=== PATIENT | female | born 1970 | race Asian ===

== ENCOUNTER 2020-07-02 18:27 | Emergency (ER) | payer MEDICAID ==
[~2020-07-02] VITALS: Ht 149.9 cm; Wt 43.1 kg
[2020-07-02 19:05] VITALS: BP 145/87
--- NOTE | 2020-07-02 19:05 | NUR ---
ED Nurse Note: Pt BIBA for abdominal discomfort and pressure. Denies pain. Pt states she feels like a "snake is in stomach." Pt is alert and orientedx4, ambulatory. She has blood drawn. Set up on monitor. Pt has anxiety.
--- NOTE | 2020-07-02 19:10 | NUR ---
HAND-OFF: Report received from GAMA Kinsey. Pt in stable condition, resting in bed, aao x 4.
[2020-07-02] MEDS ORDERED: Omnipaque-300 100ml vial INJ PRN (19:15)
[2020-07-02 19:21] LABS: BASOPHILS % (AUTO) 1.1 % (0.0-2.0); EOSINOPHILS % (AUTO) 1.5 % (0.0-3.0); HEMATOCRIT 51.8 % (37.0-47.0); HEMOGLOBIN 16.4 G/DL (12.0-16.0); LYMPHOCYTES % (AUTO) 32.9 % (20.0-45.0); MEAN CORPUSCULAR VOLUME 92 FL (80-99); MONOCYTES % (AUTO) 6.2 % (1.0-10.0); NEUTROPHILS % (AUTO) 58.3 % (45.0-75.0); PLATELET COUNT 362 K/UL (150-450); RED BLOOD COUNT 5.65 M/UL (4.20-5.40); WHITE BLOOD COUNT 12.1 K/UL (4.8-10.8)
[2020-07-02 19:21] LABS: APPEARANCE,URINE CLEAR; BILIRUBIN, URINE NEGATIVE (NEGATIVE); COLOR,URINE PALE YELLOW; GLUCOSE, URINE (UA) NEGATIVE (NEGATIVE); KETONES,URINE NEGATIVE (NEGATIVE); LEUKOCYTE ESTERASE ,URINE NEGATIVE (NEGATIVE); NITRITE,URINE NEGATIVE (NEGATIVE); PH,URINE 7 (4.5-8.0); PROTEIN,URINE NEGATIVE (NEGATIVE); UROBILINOGEN,URINE NORMAL MG/DL (0.0-1.0)
--- NOTE | 2020-07-02 19:21 | Emergency Room Report ---
History of Present Illness General Chief Complaint: Abdominal Pain Source: Patient Present Illness HPI Disclaimer: Please note that this report is being documented using DRAGON technology. This can lead to erroneous entry secondary to incorrect interpretation by the dictating instrument. HPI: 49-year-old female no reported past medical history presents from home due to abdominal discomfort. She reports intermittent abdominal discomfort for the past 5 days. Some nausea no vomiting but does report constipation. No urinary complaints. She states it feels as though "a snake is moving around in my abdomen". He denies any fevers. She denies any surgical history. She denies any pain at this time. Allergies: Coded Allergies: No Known Allergies (Unverified , 07/02/20) COVID-19 Screening Contact w/high risk pt: No Experienced COVID-19 symptoms?: No COVID-19 Testing performed ENGINEERING GROUP MANAGER: No Patient History Last Menstrual Period: none Now: No Reviewed Nursing Documentation: PMH: Agreed; PSxH: Agreed Nursing Documentation-PMH Past Medical History: No Stated History Review of Systems All Other Systems: negative except mentioned in HPI Physical Exam Vital Signs Date Time Temp Pulse Resp B/P (MAP) Pulse Ox O2 Delivery O2 Flow Rate FiO2 07/02/20 18:34 97.5 84 20 150/80 (103) 96 Room Air Sp02 EP Interpretation: reviewed, normal General Appearance: well appearing, no apparent distress Head: normocephalic, atraumatic Eyes: bilateral eye PERRL, bilateral eye EOMI ENT: hearing grossly normal, moist mucus membranes Neck: full range of motion, supple Respiratory: lungs clear, normal breath sounds, no rhonchi, no respiratory distress, no retraction, no wheezing Cardiovascular #1: normal peripheral pulses, regular rate, rhythm, no murmur Gastrointestinal: non tender, soft, non-distended, no guarding Neurologic: alert, oriented x3, no focal defects Skin: normal color, warm/dry Medical Decision Making Diagnostic Impression: Primary Impression: Abdominal pain ER Course MDM: Differential diagnosis included but not limited to gastritis, colitis, gastroenteritis, UTI Clinical course-IV inserted. Laboratory studies are sent CT scan with IV contrast ordered. CT scan did not demonstrate any acute inflammatory pathology. Laboratory studies showed white blood cell count of 12 without other acute findings, LFTs normal. On my reexamination patient remained pain-free abdomen nontender. At this time will discharge home on antacids, antiemetics, and laxative. I have low suspicion for surgical abdominal disease. Patient will follow-up with her PMD. I did give her strict return precautions. Laboratory Tests Test 07/02/20 18:45 07/02/20 18:55 Urine Color Pale yellow Urine Appearance Clear Urine pH 7 (4.5-8.0) Urine Specific [place] 1.010 (1.005-1.035) Urine Protein Negative (NEGATIVE) Urine Glucose (UA) Negative (NEGATIVE) Urine Ketones Negative (NEGATIVE) Urine Blood 2+ (NEGATIVE) H Urine Nitrite Negative (NEGATIVE) Urine Bilirubin Negative (NEGATIVE) Urine Urobilinogen Normal MG/DL (0.0-1.0) Urine Leukocyte Esterase Negative (NEGATIVE) Urine RBC 0-2 /HPF (0 - 2) Urine WBC 0-2 /HPF (0 - 2) Urine Squamous Epithelial Cells Occasional /LPF Urine Bacteria Occasional /HPF (NONE) White Blood Count 12.1 K/UL (4.8-10.8) H Red Blood Count 5.65 M/UL (4.20-5.40) H Hemoglobin 16.4 G/DL (12.0-16.0) H Hematocrit 51.8 % (37.0-47.0) H Mean Corpuscular Volume 92 FL (80-99) Mean Corpuscular Hemoglobin 29.1 PG (27.0-31.0) Mean Corpuscular Hemoglobin Concent 31.7 G/DL (32.0-36.0) L Red Cell Distribution Width 13.0 % (11.6-14.8) Platelet Count 362 K/UL (150-450) Mean Platelet Volume 6.5 FL (6.5-10.1) Neutrophils (%) (Auto) 58.3 % (45.0-75.0) Lymphocytes (%) (Auto) 32.9 % (20.0-45.0) Monocytes (%) (Auto) 6.2 % (1.0-10.0) Eosinophils (%) (Auto) 1.5 % (0.0-3.0) Basophils (%) (Auto) 1.1 % (0.0-2.0) Sodium Level 141 MMOL/L (136-145) Potassium Level 3.5 MMOL/L (3.5-5.1) Chloride Level 103 MMOL/L (98-107) Carbon Dioxide Level 30 MMOL/L (21-32) Anion Gap 8 mmol/L (5-15) Blood Urea Nitrogen 11 mg/dL (7-18) Creatinine 0.8 MG/DL (0.55-1.30) Estimated Glomerular Filtration Rate > 60 mL/min (>60) Glucose Level 108 MG/DL (74-106) H Calcium Level 9.0 MG/DL (8.5-10.1) Total Bilirubin 0.3 MG/DL (0.2-1.0) Aspartate Amino Transferase (AST) 18 U/L (15-37) Alanine Aminotransferase (ALT) 22 U/L (12-78) Alkaline Phosphatase 93 U/L (46-116) Total Protein 8.3 G/DL (6.4-8.2) H Albumin 4.0 G/DL (3.4-5.0) Globulin 4.3 g/dL Albumin/Globulin Ratio 0.9 (1.0-2.7) L Lipase 166 U/L (73-393) CT/MRI/US Diagnostic Results CT/MRI/US Diagnostic Results : Imaging Test Ordered: CT scan abdomen and pelvis Impression IMPRESSION: 1. Fatty infiltration of the liver. 2. Gallbladder is unremarkable. 3. No renal calculus or hydronephrosis is detected. 4. Appendix is unremarkable. 5. No evidence of bowel obstruction. 6. Umbilical hernia containing mesenteric fat only. Last Vital Signs Date Time Temp Pulse Resp B/P (MAP) Pulse Ox O2 Delivery O2 Flow Rate FiO2 07/02/20 18:34 97.5 84 20 150/80 (103) 96 Room Air Status: improved Disposition: HOME, SELF-CARE Condition: Stable Scripts Polyethylene Glycol 3350* (MIRALAX*) 17 Gm Powd.pack 17 GM ORAL DAILY, #30 PACKET Prov: Fredy Murry M.D. 07/02/20 Ondansetron (Zofran) 4 Mg Tablet 4 MG ORAL Q8H PRN for Nausea & Vomiting, #10 TAB 0 Refills Prov: Fredy Murry M.D. 07/02/20 Famotidine* (Pepcid 20mg tablet*) 20 Mg Tablet 20 MG ORAL TWICE A DAY for Gerd, #30 TAB 0 Refills Prov: Fredy Murry M.D. 07/02/20 Referrals: NOT CHOSEN [facility]/,REFERRING (PCP) Fredy Murry M.D. Jul 02, 2020 19:21
[2020-07-02 19:31] LABS: ANION GAP 8 mmol/L (5-15); BLOOD UREA NITROGEN 11 mg/dL (7-18); CARBON DIOXIDE 30 MMOL/L (21-32); CHLORIDE 103 MMOL/L (98-107); CREATININE 0.8 MG/DL (0.55-1.30); POTASSIUM 3.5 MMOL/L (3.5-5.1); SODIUM 141 MMOL/L (136-145)
[2020-07-02 19:35] LABS: ALANINE AMINOTRANSFERASE 22 U/L (12-78); ALBUMIN/GLOBULIN RATIO 0.9 (1.0-2.7); ALKALINE PHOSPHATASE 93 U/L (46-116); ASPARTATE AMINO TRANSFERASE 18 U/L (15-37); BILIRUBIN,TOTAL 0.3 MG/DL (0.2-1.0)
--- NOTE | 2020-07-02 19:45 | NUR ---
ED Nurse Note: pt taken to ct in stable condition
--- NOTE | 2020-07-02 20:00 | NUR ---
ED Nurse Note: pt returned frmo ct in stable conditions. awaiting results from ct
--- NOTE | 2020-07-02 20:20 | Diagnostic Imaging Report ---
EXAM: CT Abdomen and Pelvis With Intravenous Contrast CLINICAL HISTORY: AB PAIN. Kidney stone, right side pain TECHNIQUE: Axial computed tomography images of the abdomen and pelvis with intravenous contrast. CTDI is 3.3 mGy and DLP is 148.1 mGy-cm. One or more of the following dose reduction techniques were used: automated exposure control, adjustment of the mA and/or kV according to patient size, use of iterative reconstruction technique. COMPARISON: No previous studies. FINDINGS: Lung bases: Minimal subsegmental atelectasis at the lung bases. Minimal scarring at the lateral left lung base. Mediastinum: Small hiatal hernia and probable distal esophagitis. ABDOMEN: Liver: The very top of the dome of the right liver is excluded from view. Diffuse fatty infiltration of the liver. Gallbladder and bile ducts: See below. Pancreas: The head, body, tail of the pancreas and the gallbladder are unremarkable. No ductal dilation. Spleen: The spleen enhance uniformly. Adrenals: 1.5 cm probable left adrenal adenoma. No follow-up is advised to The right adrenal gland is unremarkable. Kidneys and ureters: Both kidneys are shown to excrete contrast bilaterally without renal calculus or hydronephrosis. Stomach and bowel: Moderate quantity of stool throughout the colon. No evidence of bowel obstruction. No mucosal thickening. PELVIS: Appendix: The appendix is seen on coronal image 22 and is unremarkable. Bladder: The bladder is underdistended. Reproductive: The uterus is unremarkable. ABDOMEN and PELVIS: Intraperitoneal space: Unremarkable. No free air. No significant fluid collection. Bones/joints: Alignment of the thoracolumbar spine is unremarkable. Vacuum disc at L5-S1 level. Sacrum and coccyx are unremarkable. No acute fracture. Soft tissues: 2 cm umbilical hernia containing mesenteric fat only. Ischiorectal fat is clean. Vasculature: Flow is demonstrated within the celiac, SMA, the renal arteries, and KEREN. No abdominal aortic aneurysm. Lymph nodes: No retroperitoneal lymphadenopathy. No pelvic or inguinal lymphadenopathy. Other findings: Elevation of the right hemidiaphragm. IMPRESSION: 1. Fatty infiltration of the liver. 2. Gallbladder is unremarkable. 3. No renal calculus or hydronephrosis is detected. 4. Appendix is unremarkable. 5. No evidence of bowel obstruction. 6. Umbilical hernia containing mesenteric fat only.
--- NOTE | 2020-07-02 20:45 | NUR ---
ED Nurse Note: ERMD at bedside for pt update
[2020-07-02] MEDS ORDERED: FAMOTIDINE20 MG ORAL (20:50)
[2020-07-02] MEDS ORDERED: MIRALAX17 G2 ORAL (20:50)
[2020-07-02] MEDS ORDERED: ZOFRAN4 MG ORAL (20:50)
[2020-07-02 21:20] VITALS: BP 135/76
--- NOTE | 2020-07-02 21:20 | NUR ---
ER DISCHARGE NOTE: Patient is cleared to be discharged home per ERMD, pt is aox4, 99% on room air, with stable vital signs. pt was given dc and prescription instructions, pt was able to verbalize understanding, pt id band and iv site removed without complications. pt is able to ambulate with steady gait. pt took all belongings.
== END 2020-07-02 21:20 | disposition home or self-care (01) ==
LOC: EMR 19:03
DX: R10.9 Unspecified abdominal pain (principal); R11.0 Nausea; K76.0 Fatty (change of) liver, not elsewhere classified; K42.9 Umbilical hernia without obstruction or gangrene
CPT/HCPCS: 36415; 74177; 80053; 81003; 83690; 85025; 96360; Q9965; Z7502; 99284